=== PATIENT | female | born 1980 | race Caucasian/White ===

== ENCOUNTER 2018-03-29 23:19 | Emergency (ER) | END 2018-03-30 04:50 | disposition home or self-care (01) ==

== ENCOUNTER 2018-09-12 11:02 | Emergency (ER) | payer MEDICAID ==
[~2018-09-12] VITALS: Ht 152.4 cm; Wt 81.0 kg
[~2018-09-12 11:02] MED LIST: DOCU-144 PO; FER325 PO; IBUP800T48 PO
[2018-09-12 11:03] VITALS: Ht 152.4 cm; Wt 81.0 kg
[2018-09-12] MEDS ORDERED: SOD CHLORIDE 0.9% 1,000 ML IV STA (11:52)
[2018-09-12] MEDS ORDERED: KETOROLAC 30 MG INJ IV STA (13:12)
[2018-09-12] MEDS ORDERED: LORAZEPAM 2 MG INJ IV ONE (13:30)
--- NOTE | 2018-09-12 13:47 | ERD ---
ER Documentation Chief Complaint Chief Complaint PALPITATIONS SINCE LAST NIGHT HPI This is a 38-year-old female with no past medical history. She presents to the emergency department stating that she had multiple episodes of palpitations that occurred yesterday evening. She stated these occurred roughly 6 hours prior to arrival. She stated she had difficulty sleeping. She denied any chest pain or pressure that radiates to the neck arm back or jaw. She denied any pleuritic chest pain. She said no recent travel. She has no shortness of breath at rest or exertion. She denies any abdominal pain and no associated symptoms of nausea vomiting or diaphoresis. The patient does not smoke tobacco. She has no history of coronary artery disease in first-degree relatives. She also indicates she is undergoing a significant amount of stress as her son is addicted to amphetamines. She denies any suicidal homicidal thoughts or ideations. She states the palpitations would last for several minutes and then spontaneously resolved. ROS All systems reviewed and are negative except as per history of present illness. Medications Home Meds Discontinued Scripts Docusate Sodium* (Colace*) 100 Mg Capsule, 100 MG PO TID PRN for CONSTIPATION, #30 CAP Prov:LOIVER HAYNES MD 03/30/18 Ferrous Sulfate* (Ferrous Sulfate*) 325 Mg Tabec, 325 MG PO DAILY, #30 TAB Prov:OLIVER HAYNES MD 03/30/18 Ibuprofen* (Motrin*) 800 Mg Tab, 800 MG PO Q8, #20 TAB Prov:EMILIANO DEAL MD 12/25/15 Allergies Allergies: Coded Allergies: No Known Allergy (Unverified , 09/12/18) PMhx/Soc History of Surgery: No Anesthesia Reaction: No Hx Neurological Disorder: No Hx Respiratory Disorders: No Hx Cardiac Disorders: Yes (HTN) Hx Psychiatric Problems: No Hx Miscellaneous Medical Probl: No Hx Alcohol Use: No Hx Substance Use: No Hx Tobacco Use: No Smoking Status: Never smoker Physical Exam Vitals Vital Signs Date Temp Pulse Resp B/P (MAP) Pulse Ox O2 O2 Flow FiO2 Time Delivery Rate 09/12/18 74 17 141/89 100 Room Air 13:22 (106) 09/12/18 73 16 132/86 100 Room Air 12:38 (101) 09/12/18 98.1 78 18 162/98 99 11:03 (119) Physical Exam Constitutional:Well-developed. Well-nourished. HEENT:Normocephalic. Atraumatic.Pupils were equal round reactive to light. Moist mucous membranes.No tonsillar exudates. Neck: No nuchal rigidity. No lymphadenopathy. No posterior cervical spine tenderness or step-offs. Respiratory: Not using accessory muscles of respiration.Lungs were clear to auscultation bilaterally. No rhonchi. No rales. No wheezing. Cardiovascular: Regular rate regular rhythm.No murmurs. No rubs were appreciated.S1, S2 normal. Distal pulses are palpable 2+ bilaterally. Left reproducible chest wall tenderness with no crepitus no ecchymosis no flail chest GI: Abdomen was soft. Nontender. Non Distended. No pulsatile abdominal masses or bruits. No rebound. No guarding. Bowel sounds were present and normal. Muscle skeletal: Full range of motion of both the upper and lower extremities bilaterally.Normal muscle tone.No assymetrical calf tenderness or swelling. Skin: No petechia, no purpura. No lesions on the palms or the soles of the feet. No maculopapular rash. NEURO: Patient was alert, awake, orientated x3.No facial droop. Gait observed and normal with no ataxia.Speech had regular rate and rhythm. No focal neurological deficits. Result Diagram: 09/12/18 1234 09/12/18 1234 Results 24 hrs Laboratory Tests Test 09/12/18 12:34 09/12/18 12:35 09/12/18 12:49 White Blood Count 6.5 10^3/ul Red Blood Count 4.52 10^6/ul Hemoglobin 10.5 g/dl Hematocrit 35.0 % Mean Corpuscular Volume 77.4 fl Mean Corpuscular Hemoglobin 23.2 pg Mean Corpuscular 30.0 g/dl Hemoglobin Concent Red Cell Distribution Width 14.8 % Platelet Count 330 10^3/UL Mean Platelet Volume 10.7 fl Immature Granulocytes % 0.300 % Neutrophils % 53.2 % Lymphocytes % 37.2 % Monocytes % 7.6 % Eosinophils % 1.1 % Basophils % 0.6 % Nucleated Red Blood Cells % 0.0 /100WBC Immature Granulocytes # 0.020 10^3/ul Neutrophils # 3.5 10^3/ul Lymphocytes # 2.4 10^3/ul Monocytes # 0.5 10^3/ul Eosinophils # 0.1 10^3/ul Basophils # 0.0 10^3/ul Nucleated Red Blood Cells # 0.0 10^3/ul Prothrombin Time 12.5 Sec Prothrombin Time Ratio 1.0 INR International 0.92 Normalized Ratio Activated Partial Thromboplast 26.3 Sec Time Sodium Level 141 mmol/L Potassium Level 4.1 mmol/L Chloride Level 106 mmol/L Carbon Dioxide Level 25 mmol/L Anion Gap 10 Blood Urea Nitrogen 8 mg/dl Creatinine 0.55 mg/dl Est Glomerular Filtrat > 60 mL/min Rate mL/min Glucose Level 88 mg/dl Calcium Level 9.1 mg/dl Total Bilirubin 0.0 mg/dl Direct Bilirubin 0.00 mg/dl Indirect Bilirubin 0.0 mg/dl Aspartate Amino 23 IU/L Transf (AST/SGOT) Alanine 16 IU/L Aminotransferase (ALT/SGPT) Alkaline Phosphatase 61 IU/L Creatine Kinase 61 IU/L Creatine Kinase Index 0.6 Creatinine Kinase MB (Mass) 0.36 ng/ml Troponin I < 0.012 ng/ml B-Type Natriuretic Peptide 76 PG/ML Total Protein 9.2 g/dl Albumin 4.4 g/dl Globulin 4.80 g/dl Albumin/Globulin Ratio 0.91 Ethyl Alcohol Level < 10.0 mg/dl Urine Color YELLOW Urine Clarity CLEAR Urine pH 8.0 Urine Specific [place] 1.018 Urine Ketones NEGATIVE mg/dL Urine Nitrite NEGATIVE mg/dL Urine Bilirubin NEGATIVE mg/dL Urine Urobilinogen NEGATIVE mg/dL Urine Leukocyte Esterase NEGATIVE Jose Elias/ul Urine Hemoglobin NEGATIVE mg/dL Urine Glucose NEGATIVE mg/dL Urine Total Protein NEGATIVE mg/dl Urine Opiates Screen Negative Urine Barbiturates Negative Urine Amphetamines Screen Negative Urine Benzodiazepines Screen Negative Urine Cocaine Screen Negative Urine Cannabinoids Negative POC Beta HCG, Qualitative NEGATIVE Current Medications Medications Dose Sig/Roxy Start Time Status Last (Trade) Ordered Route PRN Stop Time Admin Dose Reason Admin Sodium 1,000 ml @ Q1H STAT 09/12/18 DC 09/12/18 Chloride 1,000 mls/hr IV 11:52 12:17 09/12/18 12:51 Ketorolac 30 mg ONCE STAT 09/12/18 DC Tromethamine IV 13:12 (Toradol) 09/12/18 13:13 Lorazepam 0.5 mg ONCE ONCE 09/12/18 DC (Ativan) IV 13:30 09/12/18 13:31 Procedures/MDM The patient presented to the emergency department complaining of chest pain. My clinical evaluation and workup was to distinguish minor causes of chest pain from acute life threatening cardiopulmonary causes such as myocardial infarction, pulmonary embolism, aortic dissection, esophageal rupture, cardiac tamponade, The patient was placed on a potline monitor, continuous pulse oximetry and IV access established by nursing staff. The patient was given aspirin nitroglycerin but this did not improve her pain. Therefore at this time she was given IV Toradol 1 view chest radiograph reviewed by myself and the radiologist of myocardium negative with no infiltrates no pneumothorax or pleural effusions. Patient no severe electrolyte abnormalities. 12 Lead EKG tracing ordered and reviewed by myself showed: Normal sinus rhythm of 88 bpm and no arrhythmia. CO interval normal. QRS duration normal. No ST segment elevation No ST segment depression. No changes consistent with acute ischemia. The patients chest pain was reproduced by palpation and horizontal flexion of the arms. It was my clinical impression that the pain was a result of inflammation of the skin and subcutaneous structures of the chest wall versus myocardial ischemia. I felt the patient had low-risk chest pain and could therefore be safely discharged with close follow-up. I also indicates the patient that I did feel there was an acute anxiety component to her pain. She requested anxiety medication and was given 0.5 mg of Ativan intravenously. She was no longer tearful. I spent a significant amount of time at bedside with the patient and she stated she felt comfortable being discharged home. She will be given a prescription of Ativan. She also be given Naprosyn to treat suspected costochondritis. The patient was discharged home in fair condition. They were instructed to return to the emergency department at any time if there was any worsening of their condition. The patient stated they would follow up with their PCP in the next 24-48 hours to initiate a suitable medication regimen under the care of their PCP as well as to allow their PCP to monitor any drug reactions. The patient was discharged home with prescriptions after they gave informed consent to the new medication. They were also fully informed by myself on the adverse effects and adverse drug interactions in order to provide adequate safeguards to prevent possible adverse reactions to medications. Departure Diagnosis: Primary Impression: Palpitations Additional Impression: Acute costochondritis Condition: ANUPAMA Soriano MD Sep 12, 2018 13:47
[2018-09-12] MEDS ORDERED: LORA-441 PO (13:49)
[2018-09-12] MEDS ORDERED: NAPR-985 PO (13:49)
[2018-09-12 14:21] VITALS: BP 149/99; PULSE 79; RESP 17
== END 2018-09-12 14:44 | disposition home or self-care (01) ==
LOC: E/R 11:02
DX: R00.2 Palpitations (principal); M94.0 Chondrocostal junction syndrome [Tietze]; I10 Essential (primary) hypertension; R07.9 Chest pain, unspecified
CPT/HCPCS: 36415; 71045; 80053; 80307; 81003; 81025; 82550; 82553; 83880; 84484; 85025; 85610; 85730; 96374; 96375; J1885; J2060; J7030; Z7502